=== PATIENT | male | born 1960 | race Caucasian/White ===

== ENCOUNTER 2018-10-19 15:26 | Emergency (ER) | payer OTHER ==
[~2018-10-19] VITALS: Ht 185.4 cm; Wt 89.8 kg
--- NOTE | 2018-10-19 16:31 | PHYS DOC ---
Past History Past Medical History: No Pertinent History Past Surgical History: No Surgical History Alcohol Use: Rarely Drug Use: None Adult General Chief Complaint Chief Complaint: GROIN PAIN [facility] HPI 57-year-old male presents with right groin pain. 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 He was at a competition 7 days ago running his race when he felt a pull sensation in his right groin. Afterwards, the patient had increasing pain along the right medial thigh. The patient was well warmed up. He was not running cold. He has not had an injury like this in the past. He is able to walk, but cannot run without significant pain. He also is afraid to lift weights due to the pain. It is most painful to adduct his legs with resistance. He has had increasing bruising in this area. He has tried rice therapy without relief. He is concerned he may have a more significant muscle tear. the patient denies any other injuries or complaints. Review of Systems Review of Systems Constitutional: Denies fever or chills [] Eyes: Denies change in visual acuity, redness, or eye pain [] HENT: Denies nasal congestion or sore throat [] Respiratory: Denies cough or shortness of breath [] Cardiovascular: No additional information not addressed in HPI [] GI: Denies abdominal pain, nausea, vomiting, bloody stools or diarrhea [] : Denies dysuria or hematuria [] Musculoskeletal: Right groin pain [] Integument: Denies rash or skin lesions [] Neurologic: Denies headache, focal weakness or sensory changes [] Endocrine: Denies polyuria or polydipsia [] All other systems were reviewed and found to be within normal limits, except as documented in this note. Allergies Allergies Allergies Coded Allergies Type Severity Reaction Last Updated Verified No Known Drug Allergies 10/19/18 No Physical Exam Physical Exam Constitutional: Well developed, well nourished, no acute distress, non-toxic appearance. [] HENT: Normocephalic, atraumatic, bilateral external ears normal, oropharynx moist, no oral exudates, nose normal. [] Eyes: PERRLA, EOMI, conjunctiva normal, no discharge. [] Neck: Normal range of motion, no tenderness, supple, no stridor. [] Cardiovascular:Heart rate regular rhythm, no murmur [] Lungs & Thorax: Bilateral breath sounds clear to auscultation [] Abdomen: Bowel sounds normal, soft, no tenderness, no masses, no pulsatile masses. [] Skin: Warm, dry, no erythema, no rash. [] Back: No tenderness, no CVA tenderness. [] Extremities: Ecchymosis over the right medial thigh. No obvious significant swelling or deformity. Pain with adduction. Less pain with flexion. Muscle strength within normal limits[] Neurologic: Alert and oriented X 3, normal motor function, normal sensory function, no focal deficits noted. [] Psychologic: Affect normal, judgement normal, mood normal. [] Current Patient Data Vital Signs Vital Signs Date Time Temp Pulse Resp B/P (MAP) Pulse Ox O2 Delivery O2 Flow Rate FiO2 10/19/18 15:42 98.1 50 16 98 Room Air EKG EKG [] Radiology/Procedures Radiology/Procedures [] Course & Med Decision Making Course & Med Decision Making Pertinent Labs and Imaging studies reviewed. (See chart for details) The patient likely has a tear of one of his abductor muscles. I discussed imaging options with radiology and they do not believe anything except MRI would be useful. I discussed this with the patient and have advised that he get [place] I will additionally with this recommendation and his discharge instructions. The patient is able to touch the pain with [id number] medicines. He is stable for discharge at this time. [] Dragon Disclaimer Dragon Disclaimer This electronic medical record was generated, in whole or in part, using a voice recognition dictation system. Departure Departure: Impression: Primary Impression: Injury of adductor muscle and tendon of right thigh Disposition: 01 HOME, SELF-CARE Condition: STABLE Referrals: PCP,NO (PCP) Patient Instructions: Groin Strain Additional Instructions: It is my medical opinion that this patient could have a abductor muscle tear of the right thigh. After consultation with radiology, they have recommended MRI as the only way to evaluate this potential injury. Please order the patient's MRI as soon as is practical as this is not an order I can make from the [facility]. Problem Qualifiers Primary Impression: Injury of adductor muscle and tendon of right thigh Encounter type: initial encounter Qualified Codes: S76.201A - Unspecified injury of adductor muscle, fascia and tendon of right thigh, initial encounter CLAUDIO ROWAN DO Oct 19, 2018 16:31
[2018-10-19 17:20] VITALS: BP 125/54
== END 2018-10-19 17:37 | disposition home or self-care (01) ==
LOC: ER 15:26
DX: S70.11XA Contusion of right thigh, initial encounter (principal); X50.9XXA Other and unspecified overexertion or strenuous movements or postures, initial encounter; Y93.02 Activity, running; Y92.89 Other specified places as the place of occurrence of the external cause; Y99.8 Other external cause status
CPT/HCPCS: 99281

== ENCOUNTER 2020-08-27 10:00 | Emergency (ER) | payer OTHER ==
[~2020-08-27] VITALS: Ht 185.4 cm; Wt 95.4 kg
[2020-08-27 10:04] VITALS: BP 145/84
--- NOTE | 2020-08-27 10:39 | RAD ---
EXAM: Right knee, 3 views. HISTORY: Pain. Fall. COMPARISON: None. FINDINGS: 4 views of the right knee are obtained. There is no fracture, dislocation or subluxation. T here is no joint effusion. IMPRESSION: No acute osseous finding. Electronically signed by: Ginger Dennison MD (08/27/2020 10:37 AM) [id number]
--- NOTE | 2020-08-27 11:09 | PHYS DOC ---
Past History Past Medical History: High Cholesterol Past Surgical History: No Surgical History Alcohol Use: Rarely Drug Use: None General Adult EDM: Chief Complaint: KNEE INJURY HPI: HPI: 59-year-old male presents with right knee pain. The patient was sprinting yesterday when a ball came onto the track. To avoid it he ended up falling and rolling over. He feels like he tweaked his right knee. It hurts just below the patella. He is able to walk. He does not have a limp. He denies any change in sensation or feeling. Review of Systems: Review of Systems: Constitutional: Denies fever or chills Eyes: Denies change in visual acuity HENT: Denies nasal congestion or sore throat Respiratory: Denies cough or shortness of breath Cardiovascular: Denies chest pain or edema GI: Denies abdominal pain, nausea, vomiting, bloody stools or diarrhea : Denies dysuria Musculoskeletal: Right knee pain Integument: Denies rash Neurologic: Denies headache, focal weakness or sensory changes Endocrine: Denies polyuria or polydipsia Lymphatic: Denies swollen glands Psychiatric: Denies depression or anxiety Allergies: Allergies: Allergies Coded Allergies Type Severity Reaction Last Updated Verified No Known Drug Allergies 10/19/18 No Physical Exam: PE: Constitutional: Well developed, well nourished, no acute distress, non-toxic appearance. [] HENT: Normocephalic, atraumatic, bilateral external ears normal, oropharynx moist, no oral exudates, nose normal. [] Eyes: PERRLA, EOMI, conjunctiva normal, no discharge. [] Neck: Normal range of motion, no tenderness, supple, no stridor. [] Cardiovascular:Heart rate regular rhythm, no murmur [] Lungs & Thorax: Bilateral breath sounds clear to auscultation [] Abdomen: Bowel sounds normal, soft, no tenderness, no masses, no pulsatile masses. [] Skin: Warm, dry, no erythema, no rash. [] Back: No tenderness, no CVA tenderness. [] Extremities: Solid end feel anterior posterior drawer. No pain with varus or valgus stress. Mild pain with palpation of the inferior patella ligament. Minimal swelling. No ecchymosis. [] Neurologic: Alert and oriented X 3, normal motor function, normal sensory function, no focal deficits noted. [] Psychologic: Affect normal, judgement normal, mood normal. [] Current Patient Data: Vital Signs: Vital Signs Date Time Temp Pulse Resp B/P (MAP) Pulse Ox O2 Delivery O2 Flow Rate FiO2 08/27/20 10:04 97.9 62 16 145/84 (104) 96 Room Air EKG: EKG: [] Radiology/Procedures: Radiology/Procedures: [] Impressions: EXAM: Right knee, 3 views. HISTORY: Pain. Fall. COMPARISON: None. FINDINGS: 4 views of the right knee are obtained. There is no fracture, dislocation or subluxation. There is no joint effusion. IMPRESSION: No acute osseous finding. Electronically signed by: Ginger Dennison MD (08/27/2020 10:37 AM) [id number] DICTATED AND SIGNED BY: GINGER DENNISON MD DATE: 08/27/20 1037 CC: CLAUDIO ROWAN DO; EMERGENCY,DEPARTMENT; PCP,NO ~MTH0 0 Heart Score: C/O Chest Pain: N/A Risk Factors: Risk Factors: DM, Current or recent (<one month) smoker, HTN, HLP, family history of CAD, obesity. Risk Scores: Score 0 - 3: 2.5% MACE over next 6 weeks - Discharge Home Score 4 - 6: 20.3% MACE over next 6 weeks - Admit for Clinical Observation Score 7 - 10: 72.7% MACE over next 6 weeks - Early Invasive Strategies Course & Med Decision Making: Course & Med Decision Making Pertinent Labs and Imaging studies reviewed. (See chart for details) I believe the patient has had a sprain knee. I do not see any structural compromise. His x-ray is negative. I have given him directions for supportive care. He will follow-up with Ortho if this does not improve within the next 7 days. He is stable for discharge at this time. [] Dragon Disclaimer: Dragon Disclaimer: This electronic medical record was generated, in whole or in part, using a voice recognition dictation system. Departure Departure: Impression: Primary Impression: Right knee sprain Disposition: HOME / SELF CARE / HOMELESS Condition: STABLE Referrals: PCP,NO (PCP) Patient Instructions: Knee Sprain, [id number] CLAUDIO ROWAN DO August 27, 2020 11:09
== END 2020-08-27 11:50 | disposition home or self-care (01) ==
LOC: ER 10:00
DX: S83.91XA Sprain of unspecified site of right knee, initial encounter (principal); W18.39XA Other fall on same level, initial encounter; Y93.89 Activity, other specified; Y92.89 Other specified places as the place of occurrence of the external cause; Y99.8 Other external cause status
CPT/HCPCS: 73564; 99283-25

== ENCOUNTER → 2020-10-12 | Outpatient (CLI) | payer OTHER ==
--- NOTE | 2020-10-12 15:11 | RAD ---
EXAM: Bilateral knees, standing view. HISTORY: Pain. COMPARISON: 08/27/2020 FINDINGS: A frontal standing view both knees is obtained. There is no fracture, dislocation or sublux ation. There is no lytic or sclerotic osseous lesion or periosteal reaction. IMPRESSION: No acute osseous finding. Electronically signed by: Ginger Dennison MD (10/12/2020 3:08 PM) [id number]
== END ==
LOC: RAD 13:06
PROVIDERS: ATTEND Physician Assistant
DX: M25.562 Pain in left knee (principal); M25.561 Pain in right knee
CPT/HCPCS: 73565